=== PATIENT | female | born 1985 ===

== ENCOUNTER 2024-11-08 06:18 | Day surgery (SDC) | payer OTHER ==
[2024-10-31 09:10] VITALS: BP 127/83
[2024-10-31 09:38] LABS: PH,URINE 6.5 (5.0-8.0); URINE APPEARANCE Clear; URINE BILIRRUBIN Negative (NEGATIVE); URINE BLOOD Moderate; URINE COLOR Yellow; URINE GLUCOSE Negative (NEGATIVE); URINE KETONE Negative (NEGATIVE); URINE LEUKOCYTE Small; URINE NITRATE Negative; URINE PROTEIN Negative (NEGATIVE); URINE UROBILINOGEN 0.2 E.U./dl
[2024-10-31 09:40] LABS: URINE BACTERIA 190.9 uL (0.0-1933); URINE EPITHELIAL CELLS 7.4 uL (0.0-38.8); URINE RBC 78.5 uL (0.0-20.8); URINE WBC 19.4 uL (0.0-23.2)
[2024-10-31 09:46] LABS: BASO % 1.1 % (0.1-1.2); EOS # 0.12 (0.04-0.54); EOS % 1.6 % (0.7-7.0); HEMATOCRIT 40.9 % (34.1-44.9); HEMOGLOBIN 13.3 g/dL (11.2-15.7); LYMPH # 1.73 (1.18-3.74); LYMPH % 23.7 % (19.3-53.1); MEAN CORPUSCULAR HEMOGLOBIN 25.9 pg (25.6-32.2); MONO # 0.41 (0.24-0.82); MONO % 5.6 % (4.7-12.5); NEUT # 4.95 (1.56-6.13); NEUT % 67.7 % (34.0-71.1); PLATELET COUNT 293 K/uL (163-369); RED BLOOD COUNT 5.13 M/uL (3.93-5.22); RED CELL DISTRIBUTION WIDTH 13.7 % (11.6-14.4)
[2024-10-31 10:02] LABS: INR 0.98; PARTIAL THROMBOPLASTIN TIME 27.9 SECONDS (22.0-34.0); PROTHROMBIN TIME 10.7 SECONDS (9.0-11.5)
[2024-10-31 10:43] LABS: CALCIUM 9.1 mg/dL (8.5-10.1); CREATININE SERUM 0.76 mg/dL (0.55-1.02); GFR 83.86; PHOSPHOROUS 3.5 mg/dL (2.5-4.9); POTASSIUM 4.03 mEq/L (3.5-5.1)
[~2024-11-08] VITALS: Ht 149.9 cm; Wt 72.6 kg
[2024-11-08] MEDS ORDERED: CEFAZOLIN SODIUM 1,000 MG VIAL ONE (07:28)
[2024-11-08] MEDS ORDERED: CIPROFLOXACIN2.5 ML OTIC (11:08)
== END 2024-11-08 13:45 | disposition home or self-care (01) ==
LOC: O/R 06:18 → CIR.AMB 06:18
PROVIDERS: ATTEND Otolaryngology Otology & Neurotology
DX: H65.23 Chronic serous otitis media, bilateral (principal); H68.133 Extrinsic cartilagenous obstruction of Eustachian tube, bilateral
CPT/HCPCS: 69436; 69706; C1726